=== PATIENT | male | born 2005 | race Caucasian/White ===

== ENCOUNTER 2025-03-31 02:04 | Emergency (ER) | payer OTHER, SELFPAY ==
[2025-03-31 02:05] VITALS: BP 133/82; PULSE 92; RESP 24; TEMP 36.4; O2SAT 100; BMI 28.0
[2025-03-31 02:58] VITALS: BP 113/88; PULSE 83; RESP 20; TEMP 36.8; O2SAT 96
--- NOTE | 2025-03-31 05:48 | EX.ED.SAOD ---
HPI History of Present Illness Chief Complaint: ETOH Intox Informant: patient and friend Narrative Narrative: Patient is a 19 y/o male college student with a history of autism spectrum disorder, presenting to the ED with altered mental status after consuming a large quantity of alcohol. Patient is accompanied by his fiancé, who is supplementing history. - Patient reports consuming multiple beers of varying sizes and multiple shots of liquor, including a "tall boy" and a mixed drink, at a campus bar and a libertarian. - Patient's fiancé found him pale, unresponsive, and surrounded by emesis around 0115; she moved him to his side and attempted to wake him by slapping and shaking him. - Patient eventually woke up but was incoherent and had difficulty ambulating to the bathroom. - Patient does not recall events leading up to his arrival at the hospital, but remembers drinking with friends and his fiancé calling campus safety. - Currently feels intoxicated but denies nausea, abdominal pain, or headache. [facility] Medical History (Updated 03/31/25 @ 05:[address] Michael Garcia MD) Autism spectrum disorder Asthma Home Medications Medication Instructions Recorded Last Taken Type budesonide-formoterol HFA 80 2 puff inhalation DAILY 03/31/25 Unknown History mcg-4.5 mcg/actuation aerosol inhaler (Breyna) cetirizine 10 mg tablet (24Hour 10 mg PO DAILY 03/31/25 Unknown History Allergy) Allergy/AdvReac Type Severity Reaction Status Date / Time egg Allergy Intermediate Diarrhea Verified 03/31/25 02:09 milk Allergy Intermediate 'respiratory Verified 03/31/25 02:09 issues' gluten AdvReac Intermediate Diarrhea Verified 03/31/25 02:09 Surgical History H/O wisdom tooth extraction Social History Smoking Status: Never smoker ROS ROS ED Constitutional Constitutional ED: Denies chills or fever(s) Eyes Eyes: Denies change in vision or diplopia ENT ENT ED: Denies rhinorrhea or sore throat Cardiovascular Cardiovascular: Denies chest pain or palpitations Respiratory/Chest Respiratory/Chest: Denies cough or dyspnea Gastrointestinal Gastrointestinal: Reports nausea and vomiting; Denies abdominal pain or diarrhea Genitourinary Genitourinary ED: Denies dysuria or hematuria Musculoskeletal Musculoskeletal: Denies back pain or neck pain Integumentary Denies abscess or rash Neurologic Neurologic: Denies headache(s), paresthesias or weakness Psychiatric Psychiatric: Denies anxiety or suicidal thoughts EXAM Physical Exam Const Vital Signs: 03/31/25 02:05 03/31/25 02:58 Temperature 97.6 F L 98.3 F Temperature Source Oral Pulse Rate 92 83 Respiratory Rate 24 H 20 H Blood Pressure 133/82 H 113/88 H Blood Pressure Mean 99 96 Pulse Ox 100 96 Oxygen Delivery Method Room Air Positive well nourished and well developed Constitutional Narrative: Keenly alert, conversive, well-appearing, pleasantly intoxicated. General Appearance ED: well developed and NAD HEENT Reports moist mucous membranes normocephalic and atraumatic Eyes PERRL and EOMs intact bilaterally Neck full ROM and supple Resp normal respiratory effort and clear to auscultation bilaterally Cardio regular rate, regular rhythm and no murmurs GI non-tender and non-distended Auscultation: normoactive bowel sounds Palpation: soft Back/Spine no CVA tenderness General Back: other FROM Extremity normal to inspection General Extremety ED: Negative for edema, pulses abnormal or tenderness General Extremity: Negative for edema or pulses abnormal Neuro oriented x3, CN's II-XII intact bilaterally and no sensory deficits noted Neuro Narrative: Normal [id number] and lygg-np-nqev bilaterally. Horizontal nystagmus present. [place] Coma Scale: document GCS findings Spontaneous Obeys Commands Oriented 15 Sensorium / Orientation: awake and alert Motor Exam: strength 5/5 throughout Psych mental status grossly normal and thought process normal Psych Narrative: Intoxicated, keenly alert. Skin no rashes or lesions noted and no wounds MDM MDM MDM Narrative Medical decision making narrative: The patient is intoxicated but is keenly alert and shows no neurologic symptoms or deficits. His lungs are clear, and his pulse oximetry is 100%, which argues against aspiration. He feels relatively well except for feeling intoxicated. Given this, I am comfortable administering Zofran and allowing his fiancée to take him home. Both he and his fiancée are comfortable with this plan. Discharge Plan Triage Chief Complaint: ETOH Intox ED Provider: Michael Garcia Dx/Rx/DC Orders Clinical Impression: Toxic effect of alcohol, Alcohol intoxication Instructions: ED Overdose Alcohol Prescriptions: No Action cetirizine [24Hour Allergy] 10 mg tablet 10 mg PO DAILY budesonide-formoterol [Breyna] 80-4.5 mcg/actuation HFA aerosol inhaler 2 puff inhalation DAILY Primary Care Provider: Care Physician,No Primary Referrals: [facility] [Group of Physicians, None] - As Needed Print Language: Czech Disposition Disposition: Home, Self Care Discharge Date/Time: 03/31/25 03:05
== END 2025-03-31 03:05 | disposition home or self-care (01) ==
LOC: ED 03:05
PROVIDERS: Emergency Provider Emergency Medicine; Visit Provider Emergency Medicine
DX: F10.129 Alcohol abuse with intoxication, unspecified (principal); F84.0 Autistic disorder; R11.2 Nausea with vomiting, unspecified; Y90.9 Presence of alcohol in blood, level not specified
CPT/HCPCS: 99282